=== PATIENT | male | born 1975 | race American Indian/Alaskan Native ===

== ENCOUNTER 2020-01-07 14:15 | Emergency (ER) | payer OTHER, BC ==
[2020-01-07 14:20] VITALS: BP 143/71
[2020-01-07] MEDS ORDERED: FLUORESCEIN 1 MG STRIP OP ONE (14:22)
--- NOTE | 2020-01-07 14:23 | Emergency Department Report ---
ED Eye Problem HPI - General Chief complaint: Eye Problems Stated complaint: EYE PAIN Time Seen by Provider: 01/07/20 14:20 Source: patient Mode of arrival: Ambulatory Limitations: No Limitations - History of Present Illness Initial comments: Pt complains of left eye pain and irritation x today. Pt states something flew into his eye around 11 am and he has been trying to get it out since. He admits to photophobia and rates his pain as a 7/10 in severity. He denies any vision changes, purulent drainage, or pain with eye movements. -: Sudden - Related Data Previous Rx's Medication Instructions Recorded Last Taken Type Acetaminophen/Codeine [Tylenol 1 tab PO Q6H PRN #10 tab 01/07/20 Unknown Rx /Codeine # 3 tab] Erythromycin [Erythromycin Ophth 1 cm OU Q4H 7 Days #1 tube 01/07/20 Unknown Rx Oint] Ibuprofen [Motrin 800 MG tab] 800 mg PO Q8HR PRN #21 tablet 01/07/20 Unknown Rx Allergies Allergy/AdvReac Type Severity Reaction Status Date / Time No Known Allergies Allergy Unverified 01/07/20 14:19 ED Review of Systems ROS: Stated complaint: EYE PAIN Other details as noted in HPI Constitutional: denies: chills, fever Eyes: eye pain. denies: eye discharge, vision change ENT: denies: ear pain, throat pain, hearing loss Neurological: denies: headache, weakness, numbness, paresthesias ED Past Medical Hx - Past Medical History Previous Medical History?: No - Surgical History Past Surgical History?: No - Medications Home Medications: Home Medications Medication Instructions Recorded Confirmed Last Taken Type Acetaminophen/Codeine [Tylenol 1 tab PO Q6H PRN #10 tab 01/07/20 Unknown Rx /Codeine # 3 tab] Erythromycin [Erythromycin Ophth 1 cm OU Q4H 7 Days #1 tube 01/07/20 Unknown Rx Oint] Ibuprofen [Motrin 800 MG tab] 800 mg PO Q8HR PRN #21 tablet 01/07/20 Unknown Rx ED Physical Exam - General Limitations: No Limitations General appearance: alert, in no apparent distress - Head Head exam: Present: atraumatic, normocephalic - Eye Eye exam: Present: PERRL, EOMI, conjunctival injection (left), other (Corneal abrasion noted at approximately 10:00 and measures approximately 0.4 cm). Absent: periorbital swelling, periorbital tenderness Pupils: Present: other (Left upper eyelid was everted using a Q-tip and a tiny brown foreign body was noted and removed. Eye was flushed with normal saline. Patient states pain improvement post procedure.) - Neck Neck exam: Present: full ROM - Respiratory Respiratory exam: Absent: respiratory distress - Cardiovascular Cardiovascular Exam: Present: regular rate - Neurological Exam Neurological exam: Present: alert, oriented X3, normal gait - Psychiatric Psychiatric exam: Present: normal affect, normal mood - Skin Skin exam: Present: warm, dry, intact, normal color. Absent: rash ED Course Vital Signs 01/07/20 14:19 Temperature 98.2 F Pulse Rate 70 Respiratory 18 Rate Blood Pressure 143/71 [Right] O2 Sat by Pulse 100 Oximetry ED Medical Decision Making - Medical Decision Making Patient here with complaints of left eye pain and photophobia. Corneal abrasion and foreign body noted on exam. Foreign body was removed and I was flushed with normal saline. Patient given prescription for erythromycin, pain medication, and informed to follow-up with ophthalmology in 2 days. Strict return precautions were discussed in great detail with patient who verbalized understanding Critical care attestation.: If time is entered above; I have spent that time in minutes in the direct care of this critically ill patient, excluding procedure time. ED Disposition Clinical Impression: Left corneal abrasion Qualifiers: Encounter type: initial encounter Qualified Code(s): S05.02XA - Injury of conjunctiva and corneal abrasion without foreign body, left eye, initial encounter Foreign body of left eye Qualifiers: Encounter type: initial encounter Qualified Code(s): T15.92XA - Foreign body on external eye, part unspecified, left eye, initial encounter Disposition: TO HOME OR SELFCARE Is pt being admited?: No Condition: Stable Instructions: Corneal Abrasion (ED), Eye Foreign Body (ED) Prescriptions: Erythromycin [Erythromycin Ophth Oint] 1 cm OU Q4H 7 Days #1 tube Ibuprofen [Motrin 800 MG tab] 800 mg PO Q8HR PRN #21 tablet PRN Reason: pain Acetaminophen/Codeine [Tylenol /Codeine # 3 tab] 1 tab PO Q6H PRN #10 tab PRN Reason: Pain , Severe (7-10) Referrals: JOHANA VELEZ MD [Staff Physician] - 2-3 Days
[2020-01-07] MEDS ORDERED: TETRACAINE 0.5% OPHTH SOLN 4ML OU STA (17:37)
== END 2020-01-07 18:46 | disposition home or self-care (01) ==
LOC: ED 14:15
DX: T15.02XA Foreign body in cornea, left eye, initial encounter (principal); Z79.1 Long term (current) use of non-steroidal anti-inflammatories (NSAID); Z79.2 Long term (current) use of antibiotics; Z79.899 Other long term (current) drug therapy; X58.XXXA Exposure to other specified factors, initial encounter; Y93.89 Activity, other specified; Y92.89 Other specified places as the place of occurrence of the external cause; Y99.8 Other external cause status
CPT/HCPCS: 99282